=== PATIENT | female | born 1985 | race Caucasian/White ===

== ENCOUNTER → 2016-03-17 | Outpatient (CLI) | payer OTHER ==
--- NOTE | 2016-03-17 17:21 | DI ---
US OB GTE 14 WEEKS,03/17/2016 2:54 PM: Clinical History: Encountered for anatomic survey. Previous Exam: None at this facility. Findings: Multiple grayscale and color Doppler sonographic images are obtained through the pelvis demonstrating a single live intrauterine gestation in breech presentation. Amniotic fluid index is within normal limits (14.4 cm.) There is normal spontaneous motion of the limbs. Detected Doppler heart tones measure 146 beats per m inute. Estimated gestational age was determined by a composite of biparietal diameter,, head circumference, abdominal circumference and femur length yielding an estimated gestational age by ultrasound of 21 we eks one day. Estimated weight was 433 g (75th percentile). The placenta was posterior and grade 1 without defects. anatomy survey was within normal limits however, a 3 vessel cord was not identified. The cervix is long and closed measuring 3.3 cm in length. Impression: 1. Three-vessel cord not definitively identified however, both umbilical arteries were seen passing b y the urinary bladder. 2. growth discrepancy with femur length measuring at the 87th percentile while biparietal diame ter and head circumference measured at the 18th percentile. Despite this discrepancy, the composite g estational age is equal to dates. 3. Normal anatomic survey.
== END ==
LOC: US 14:50
PROVIDERS: ATTEND Student in an Organized Health Care Education/Training Program
DX: Z36 Encounter for antenatal screening of mother (principal); Z3A.20 20 weeks gestation of pregnancy
CPT/HCPCS: 76805; 99283

== ENCOUNTER → 2016-04-25 | Outpatient (CLI) | payer OTHER ==
[2016-04-25 11:18] LABS: BASOPHILS # (AUTO) 0.03 10*3/UL; BASOPHILS % (AUTO) 0.3 % (0-1); EOSINOPHILS # (AUTO) 0.08 10*3/UL; EOSINOPHILS % (AUTO) 0.7 % (0-8); HEMATOCRIT 35.4 % (37.0-47.0); HEMOGLOBIN 11.5 g/dL (12.0-16.0); LYMPHOCYTES # (AUTO) 2.07 10*3/uL; MEAN CORPUSCULAR HEMOGLOBIN 29.6 PG (27-31); MEAN CORPUSCULAR HGB CONC 32.5 g/dL (33-37); MEAN PLATELET VOLUME 9.3 FL (7.4-12.2); MONOCYTES # (AUTO) 0.98 10*3/UL (0.3-0.8); NEUTROPHILS # (AUTO) 7.64 10*3/UL; NEUTROPHILS % (AUTO) 70.5 % (50-80); RED BLOOD COUNT 3.89 10^6/uL (4.20-5.40)
[2016-04-25 11:20] LABS: PLATELET MORPHOLOGY COMMENT NORMAL MORPHOLOGY (NORM); RBC MORPHOLOGY COMMENT NORMAL MORPHOLOGY (NORM); WBC MORPHOLOGY COMMENT NORMAL MORPHOLOGY (NORM)
== END ==
LOC: LAB 10:07
PROVIDERS: ATTEND Student in an Organized Health Care Education/Training Program
DX: O99.282 Endocrine, nutritional and metabolic diseases complicating pregnancy, second trimester (principal); E05.00 Thyrotoxicosis with diffuse goiter without thyrotoxic crisis or storm; Z36 Encounter for antenatal screening of mother; Z3A.25 25 weeks gestation of pregnancy
CPT/HCPCS: 36415; 82950; 84443; 85025

== ENCOUNTER → 2016-06-27 | Outpatient (CLI) | payer OTHER | LOC: MOB LAB 16:46 | PROVIDERS: ATTEND Student in an Organized Health Care Education/Training Program | DX: O26.893 Other specified pregnancy related conditions, third trimester (principal); E05.00 Thyrotoxicosis with diffuse goiter without thyrotoxic crisis or storm; Z36 Encounter for antenatal screening of mother; Z3A.35 35 weeks gestation of pregnancy | CPT/HCPCS: 36415; 84443; 87150 ==

== ENCOUNTER 2016-07-29 00:34 | Inpatient (IN) | payer OTHER ==
[2016-07-29 01:32] LABS: HEMATOCRIT 41.9 % (37.0-47.0); HEMOGLOBIN 14.1 g/dL (12.0-16.0); MEAN CORPUSCULAR HEMOGLOBIN 30.2 PG (27-31); MEAN CORPUSCULAR HGB CONC 33.7 g/dL (33-37); MEAN CORPUSCULAR VOLUME 89.7 FL (81-99); MEAN PLATELET VOLUME 10.7 FL (7.4-12.2); RED BLOOD COUNT 4.67 10^6/uL (4.20-5.40)
[2016-07-29] MEDS ORDERED: HYDROcodone-APAP 5 MG -325 MG TABLET PO PRN (01:50)
[2016-07-29] MEDS ORDERED: diphenhydrAMINE 50 MG/1 ML VIAL IVP PRN (01:50)
[2016-07-29] MEDS ORDERED: Nalbuphine Inj 20 MG/ML Ampule IVP PRN (01:50)
[2016-07-29] MEDS ORDERED: METHYLERGONOVINE MALEATE 0.2 MG/1 ML VIAL IM PRN (01:50)
[2016-07-29] MEDS ORDERED: LANOLIN HPA 40 GM TUBE TOPICAL PRN (01:50)
[2016-07-29] MEDS ORDERED: Methylergonovine Tab 0.2 MG TAB PO PRN (01:50)
[2016-07-29] MEDS ORDERED: BENZOCAINE/MENTHOL SPRAY 56 GM BOTTLE TOPICAL PRN (01:50)
[2016-07-29] MEDS ORDERED: GLYCERIN/WITCH HAZEL 1 BOX TOPICAL PRN (01:50)
[2016-07-29] MEDS ORDERED: MISOPROSTOL 200 MCG TABLET RECTAL ONE (01:50)
[2016-07-29] MEDS ORDERED: ACETAMINOPHEN 325 MG TABLET PO PRN (01:50)
[2016-07-29] MEDS ORDERED: CALCIUM CARBONATE 500 MG (TUMS) CHEWABLE TABLET PO PRN (01:50)
[2016-07-29] MEDS ORDERED: Carboprost Inj 250 MCG/ML AMP IM PRN (01:50)
[2016-07-29] MEDS ORDERED: Ondansetron ODT Tab 4 MG TAB PO PRN (01:50)
[2016-07-29] MEDS ORDERED: ONDANSETRON 4 MG/2 ML VIAL IVP PRN (01:50)
[2016-07-29] MEDS ORDERED: NORMAL SALINE 10 ML SYRINGE FLUSH IVP PRN (01:50)
[2016-07-29] MEDS ORDERED: diphenhydrAMINE 25 MG CAPSULE PO PRN (01:50)
[2016-07-29] MEDS ORDERED: OXYTOCIN 10 UNIT/1 ML IM ONE (01:50)
[2016-07-29] MEDS ORDERED: Oxytocin 20 Units + LR 1,000 ML IV SCH (02:00)
[2016-07-29] MEDS ORDERED: DIPH,PERTUSS,TET(ADACEL) VAC/PF 0.5 ML (Tdap) IM SCH (02:00)
--- NOTE | 2016-07-29 02:10 | OB.DEL.SUM ---
Delivery Note Delivery Summary: Pt is a 30 yo G4 now P4 at 40 1/7 weeks by early u/s who presented to labor and delivery with rupture of membranes at home and frequent, painful contractions. When she presented to labor and delivery, she was complete and +1. An IV was quickly established and a delivery table set up. With 2-3 pushes, the pt delivered a viable female infant, over an intact perineumat 0111. There was a nuchal and body cord. Baby was bulb suctioned to the nose and mouth and the cord was doubly clamped by myself and cut by the father of the baby. Baby was placed on mom's chest. Cord blood and cord gases were obtained for analysis. The placenta delivered spontaneously and intact, with a 3 vessel cord a short time later. There was moderate uterine atony, which was treated with bimanual massage and IV pitocin. The vagina and perineum were examined and no lacerations were noted. Apgars were 7 at 1 minute and 8 at 5 minutes. Weight of baby is pending at this time. EBL 350cc. Both mom and baby tolerated delivery well and are in stable condition at this time.
[2016-07-29] MEDS: IBUPROFEN 800 MG TABLET PO PRN ×2 (09:21→15:45)
[2016-07-29] MEDS: Prenatal Multivitamin Tab 1 TAB TAB PO SCH (09:22)
[2016-07-29] MEDS: DOCUSATE 100 MG CAPSULE PO SCH (14:17)
[2016-07-30 05:45] LABS: HEMATOCRIT 33.3 % (37.0-47.0); HEMOGLOBIN 10.7 g/dL (12.0-16.0); MEAN CORPUSCULAR HEMOGLOBIN 29.5 PG (27-31); MEAN CORPUSCULAR HGB CONC 32.1 g/dL (33-37); MEAN CORPUSCULAR VOLUME 91.7 FL (81-99); MEAN PLATELET VOLUME 10.6 FL (7.4-12.2); RED BLOOD COUNT 3.63 10^6/uL (4.20-5.40)
[2016-07-30] MEDS: DOCUSATE 100 MG CAPSULE PO SCH ×2 (07:25→08:22)
[2016-07-30] MEDS: Prenatal Multivitamin Tab 1 TAB TAB PO SCH (08:22)
[2016-07-30] MEDS ORDERED: Prenatal Multivitamin Tab 1 TAB TAB PO SCH (09:00)
--- NOTE | 2016-07-30 09:15 | OB.PROGRES ---
Subjective Post Day: 1 Pain Management: PO Cordero Catheter: No Flatus: Yes Diet: Regular [place] Feeding Method: Exculsively Ambulating: Yes Concerns / Additional Information: No concerns. Objective - General General Appearance: POSITIVE: No Acute Distress, Cooperative - Cardiovacular Cardiovascular Exam: POSITIVE: RRR, No Murmur, No Clicks, No Gallops Edema: +2 Pedal Edema Extremities: Negative Shoshana's - Bilaterally - Respiratory Respiratory Exam: POSITIVE: Clear to Auscultation - Bilaterally, Breathing Non Labored - Abdomen Bowel Sounds: Present Assesstment / Plan (1) Status post normal vaginal delivery Status: Acute Assessment / Plan: -routine cares. -breast feeding going well. -rubella immune -rh positive. -d/c home today per pt request.
[2016-07-30 09:32] VITALS: RESP 18; TEMP 98.4
--- NOTE | 2016-07-30 11:32 | CRNA.PROGR ---
Anesthesia Note Anesthesia Progress Note: Sitting up in bed visiting with family. She has no questions or concerns regarding her anesthetic course. Laboratory Results 07/29/16 07/30/16 Range/Units 01:06 05:18 WBC 11.76 H 10.97 H (4.8-10.8) 10^3/uL RBC 4.67 3.63 L (4.20-5.40) 10^6/uL Hgb 14.1 10.7 L (12.0-16.0) g/dL Hct 41.9 33.3 L (37.0-47.0) % MCV 89.7 91.7 (81-99) FL MCH 30.2 29.5 (27-31) PG MCHC 33.7 32.1 L (33-37) g/dL RDW Std Deviation 46.4 47.0 (39-50) fL RDW Coeff of Nica 14.7 H 14.8 H (11.5-14.5) % Plt Count 238 197 (140-350) 10*3/uL MPV 10.7 10.6 (7.4-12.2) FL Vital Signs (Last 8 hours) Temp Pulse Resp BP Pulse Ox 07/30/16 09:25 98.4 F 104 H 18 125/96 98 07/30/16 05:03 98.7 F 87 21 115/88 98
== END 2016-07-30 09:50 | disposition home or self-care (01) | DRG 775 ==
LOC: OBIP 00:34
PROVIDERS: ADMIT Obstetrics & Gynecology; ATTEND Family Medicine
PROC: 10E0XZZ Delivery of Products of Conception, External Approach (ICD-10-PCS; principal; 2016-07-29)
DX: O80 Encounter for full-term uncomplicated delivery (principal); Z3A.40 40 weeks gestation of pregnancy; Z37.0 Single live birth
CPT/HCPCS: 36415; 85027